=== PATIENT | female | born 1945 | race Caucasian/White ===

== ENCOUNTER → 2016-08-04 | Outpatient (CLI) | payer OTHER, BC | LOC: MMPC 11:11 | PROVIDERS: ATTEND Physician Assistant | DX: R05 Cough (principal); R51 Headache; R11.10 Vomiting, unspecified | CPT/HCPCS: 87400; 99213; G0463 ==

== ENCOUNTER 2016-08-05 08:53 | Emergency (ER) | payer OTHER, BC ==
[2016-08-05] MEDS ORDERED: Sodium Chloride 0.9% 1,000 ML PRIMARY IV ONE (09:05)
[2016-08-05] MEDS ORDERED: ONDANSETRON 4 MG/2 ML VIAL IVP ONE (09:05)
[2016-08-05] MEDS ORDERED: NORMAL SALINE 10 ML SYRINGE FLUSH IVP PRN (09:05)
[2016-08-05 09:13] VITALS: RESP 18; TEMP 97.6
[2016-08-05 09:31] LABS: BASOPHILS # (AUTO) 0.01 10*3/UL; BASOPHILS % (AUTO) 0.2 % (0-1); EOSINOPHILS # (AUTO) 0.01 10*3/UL; EOSINOPHILS % (AUTO) 0.2 % (0-8); HEMATOCRIT 43.9 % (37.0-47.0); HEMOGLOBIN 14.4 g/dL (12.0-16.0); LYMPHOCYTES # (AUTO) 0.74 10*3/uL; MEAN CORPUSCULAR HEMOGLOBIN 30.2 PG (27-31); MEAN CORPUSCULAR HGB CONC 32.8 g/dL (33-37); MEAN PLATELET VOLUME 9.5 FL (7.4-12.2); MONOCYTES # (AUTO) 0.53 10*3/UL (0.3-0.8); MONOCYTES % (AUTO) 12.5 % (5-15); NEUTROPHILS # (AUTO) 2.93 10*3/UL; NEUTROPHILS % (AUTO) 69.4 % (50-80); RED BLOOD COUNT 4.77 10^6/uL (4.20-5.40)
--- NOTE | 2016-08-05 09:36 | PDOC ---
Nausea/Vomiting/Diarrhea HPI - General Chief Complaint: Nausea / Vomiting / Diarrhea Stated Complaint: FEVER, FLU SYMPTOMS Date Seen by Provider: 08/05/16 Time Seen by Provider: 09:05 Source: POSITIVE: Patient Exam Limitations: POSITIVE: No limitations Nurse's Notes Reviewed & Considered: Yes - History of Present Illness Initial Comments: The patient is a 71-year-old female who presents to the emergency department with complaints of nausea, vomiting and diarrhea. She states that yesterday she had onset of upper respiratory symptoms including some congestion and cough. She also had associated fever and chills. She was seen at the outpatient clinic and tested for influenza which was negative. She states that last night and today she has developed nausea and vomiting as well as loose watery diarrhea. She denies any associated abdominal pain. She did try to go to work this morning however ended up vomiting and subsequently decided to come here to the emergency room. She does report some frontal sinus pressure/ headache. She does have cough which is occasionally productive however she denies any shortness of breath. She denies any chest pain or abdominal pain. She is generally healthy. - Patient Home Medications Home Medications: Home Medications [place]-3 Fatty Acids [Fish Oil] 300 mg PO DAILY 05/27/11 Calcium Carbonate/Vitamin D3 [Calcium + Vitamin D Tablet] 1 mg PO DAILY Duloxetine HCl [Cymbalta] 60 mg ORAL QD #90 capsule 07/01/15 Rosuvastatin Calcium [Crestor] 10 mg PO QHS #90 tab 07/01/15 Ibuprofen 800 mg PO QID #120 tab 08/01/16 Azithromycin [Zithromax] 250 mg PO DAILY #6 tab 08/05/16 Ondansetron Odt [Zofran Odt] 8 mg PO Q6H PRN #6 tab.rapdis 08/05/16 Prometh/Codeine 10/6.25mg/5ml [Phenergan/Codeine 10/6.25mg/5ml Liq] 5 ml PO Q6H PRN #60 ml 08/05/16 - Patient Allergies Allergies/Adverse Reactions: Allergies Allergy/AdvReac Type Severity Reaction Status Date / Time nuts Allergy Severe Anaphylaxis Uncoded 08/05/16 08:59 Past Medical History - heen HEENT History: Dentures/Partials Additional HEENT History: UPPER PARTIAL Cardiovascular History: Hyperlipidemia Respiratory History: Denies History Gastrointestinal History: Denies History Additional Gastrointestinal History: SEPTEMBER 2013 Genitourinary History: Denies History Additional Genitourinary History: Recent urinary tract infections. 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 KELLOID SCAR REMOVAL X 2(ABD) Anesthesia Reactions: No Malignant Hyperthermia: No Significant Family History: No pertinent family hx Past Medical History Reviewed: Reviewed - No Changes ROS - Limitations ROS Limitations: No Limitations Constitution: REPORTS: Chills, Fever Cardiovascular: REPORTS: Denies Cardiac Symptoms Respiratory: REPORTS: Cough Non Productive, Cough Productive. DENIES: Hurts To Breathe, Shortness Of Breath Neurological: REPORTS: Headache (frontal LEE/sinus pressure), Dizziness (light- headed) Gastrointestinal: REPORTS: Nausea, Vomitting, Diarrhea. DENIES: Abdominal Pain , Black Stools, Bloody Stools Musculoskeletal: DENIES: Joint Pain, Muscle Aches Genitourinary: REPORTS: Denies Symptoms Eyes: REPORTS: Denies Symptoms ENT: REPORTS: Congestion Skin: DENIES: Rash Nausea/Vomiting/Diarrhea Exam - General Appearance General Appearance: POSITIVE: Alert, Cooperative, No Acute Distress - HEENT HEENT: POSITIVE: Head Inspection Nml, Eyes Inspection Nml, Ears Inspection Nml - Neck Neck: POSITIVE: Supple, Lymphadenopathy - Respiratory Respiratory: POSITIVE: No Respiratory Distress, Breath Sounds Normal - Cardiovascular Cardiovascular: POSITIVE: Regular Rate and Rhythm, Heart Sounds Normal Peripheral Pulses: Dorsalis-pedis (R): 2+, Dorsalis-pedis (L): 2+ - Abdomen Abdomen: Soft: (All Quadrants), Denies Tenderness: (All Quadrants), No Guarding : (All Quadrants), No Rebound: (All Quadrants), No Distention: (All Quadrants) N/V/D Progress - Results Reviewed by me Lab Results Reviewed: Yes Lab Results:: Laboratory Results 08/05/16 08/05/16 Range/Units 09:20 10:29 WBC 4.23 L (4.8-10.8) 10^3/uL RBC 4.77 (4.20-5.40) 10^6/uL Hgb 14.4 (12.0-16.0) g/dL Hct 43.9 (37.0-47.0) % MCV 92.0 (81-99) FL MCH 30.2 (27-31) PG MCHC 32.8 L (33-37) g/dL RDW Std Deviation 47.1 (39-50) fL RDW Coeff of Izabela 14.1 (11.5-14.5) % Plt Count 208 (140-350) 10*3/uL MPV 9.5 (7.4-12.2) FL Immature Gran % (Auto) 0.2 (0-5) % Neut % (Auto) 69.4 (50-80) % Lymph % (Auto) 17.5 (10-50) % [place] % (Auto) 12.5 (5-15) % Eos % (Auto) 0.2 (0-8) % Baso % (Auto) 0.2 (0-1) % Immature Gran # (Auto) 0.01 10*3/UL Neut # (Auto) 2.93 10*3/UL Lymph # (Auto) 0.74 10*3/uL [place] # (Auto) 0.53 (0.3-0.8) 10*3/UL Eos # (Auto) 0.01 10*3/UL Baso # (Auto) 0.01 10*3/UL WBC Morphology Comment Normal morphology (NORM) Plt Morphology Comment Normal morphology (NORM) RBC Morph Comment Normal morphology (NORM) Sodium 140 (135-145) meq/L Potassium 3.6 L (3.8-5.2) meq/L Chloride 105 (98-112) meq/L Carbon Dioxide 23 (23-33) meq/L Anion Gap 12 (5-20) BUN 14 (7-22) mg/dL Creatinine 0.6 (0.50-1.20) mg/dL Estimated GFR > 60 (>60 ml/min/1.73m(2)) BUN/Creatinine Ratio 23.33 H (6-20) Glucose 79 (78-110) mg/dL Calculated Osmolality 289.0 (267-292) mOsm/kg Calcium 8.6 L (8.7-10.7) mg/dL Magnesium 1.8 (1.6-2.4) mg/dL Total Bilirubin 0.3 (0.3-1.2) mg/dL AST 28 (8-39) IU/L ALT 19 (9-52) IU/L Alkaline Phosphatase 91 (38-126) IU/L Total Protein 7.2 (6.1-8.0) g/dL Albumin 4.2 (3.5-4.8) g/dL Globulin 3.0 (2.50-4.10) g/dL Albumin/Globulin Ratio 1.40 (1.3-2.0) mg/g Amylase 91 (30-110) U/L Lipase 188 (23-300) IU/L Ur Collection Type Clean catch urine Urine Color Yellow Urine Clarity Clear (CLEAR) Urine pH 6.0 (5.0-8.5) Ur Specific [place] 1.020 (1.005-1.030) Urine Protein Trace (NEG) mg/dl Urine Glucose (UA) Negative (NEG) mg/dL Urine Ketones 80 (NEG) Urine Occult Blood Moderate H (NEG) Urine Nitrate Negative (NEG) Urine Bilirubin Negative (NEG) Urine Urobilinogen 0.2 (0.2) EU/dL Ur Leukocyte Esterase Negative (NEG) Urine RBC None (NONE) /hpf Urine WBC 0-3 (NONE) Ur Squamous Epith Cells Few (NONE) Ur Renal Epithelial Cell None (NONE) Urine Crystals None Urine Bacteria Rare (NONE) Urine Casts None (NONE) Urine Mucus Few (NONE) Urine Trichomonas None (NONE) Urine Yeast None (NONE) Ur Culture Indicated? Culture not set - Patient's Progress MDM / ED Course: An IV was established and the patient did receive a 1 L bolus of normal saline as well as Zofran 4 mg IV. She was able to tolerate by mouth water without any further vomiting. Laboratory findings were discussed. At this point most of her symptoms are likely explained by viral syndrome. She also may have some component of bronchitis or early pneumonia as she does have significant cough. She was started on Zithromax for treatment of bronchitis. In addition she was prescribed Phenergan with codeine as needed for cough and Zofran as needed for nausea or vomiting. She is advised return to the emergency room if she develops any increased vomiting or dehydration, abdominal pain, increased shortness of breath, any worsening or change in symptoms. She is advised follow -up with primary care in 3-5 days if no improvement. Patient Care Time - Estimated PCT Patient Care Time (In Minutes): 20 Vital Signs - Recent Vital Signs Vital Signs: Vital Signs (Last 8 hours) Temp Pulse Resp BP Pulse Ox 08/05/16 09:01 97.6 F 76 18 135/66 94 - VS Reviewed Vital Signs Reviewed: Yes Discharge Clinical Impression: Bronchitis, Nausea and vomiting, Dehydration Discharge Disposition: Discharged to Home Condition: Fair Prescriptions / Orders: Prometh/Codeine 10/6.25mg/5ml [Phenergan/Codeine 10/6.25mg/5ml Liq] 5 ml PO Q6H PRN #60 ml PRN Reason: Cough Azithromycin [Zithromax] 250 mg PO DAILY #6 tab Ondansetron Odt [Zofran Odt] 8 mg PO Q6H PRN #6 tab.rapdis PRN Reason: Nausea / Vomiting Patient Instructions Given at Discharge: Dehydration (ED), Acute Bronchitis (ED ), Acute Nausea and Vomiting (ED) Additional Instructions: Most of your current symptoms are likely caused by a viral infection. He will also be treated for bronchitis with Zithromax 500 mg today followed by 250 mg daily for 4 days. Recommend rest and push fluids. You have also been prescribed Phenergan with codeine which he can take 1 teaspoon every 6 hours as needed for cough and nausea. You're also given a prescription for some Zofran as needed for nausea or vomiting. Return to the emergency room if increased vomiting or dehydration, increased shortness of breath, any worsening or change in symptoms. Recommend follow-up with primary care if no improvement in 3-5 days. Follow Up With: MAGEN ECHEVARRIA FNP [Primary Care Provider] -
[2016-08-05 09:47] LABS: PLATELET MORPHOLOGY COMMENT NORMAL MORPHOLOGY (NORM); RBC MORPHOLOGY COMMENT NORMAL MORPHOLOGY (NORM); WBC MORPHOLOGY COMMENT NORMAL MORPHOLOGY (NORM)
[2016-08-05 09:48] LABS: BLOOD UREA NITROGEN 14 mg/dL (7-22); BUN/CREATININE RATIO 23.33 (6-20); CALCIUM 8.6 mg/dL (8.7-10.7); EST GLOMERULAR FILTRATION > 60 (>60 ml/min/1.73m(2)); LIPASE 188 IU/L (23-300); MAGNESIUM 1.8 mg/dL (1.6-2.4); SERUM ALBUMIN 4.2 g/dL (3.5-4.8)
[2016-08-05 10:35] LABS: BILIRUBIN,URINE NEGATIVE (NEG); CLARITY,URINE CLEAR (CLEAR); COLOR,URINE YELLOW; GLUCOSE, URINE (UA) NEGATIVE (NEG); NITRATE,URINE NEGATIVE (NEG); OCCULT BLOOD,URINE MODERATE (NEG); PROTEIN,URINE TRACE mg/dl (NEG); UROBILINOGEN,URINE 0.2 EU/dL (0.2)
[2016-08-05 10:41] LABS: URINE SAMPLE TYPE CLEAN CATCH URINE
[2016-08-05 10:42] LABS: BACTERIA,URINE RARE; SQUAMOUS EPITHELIAL CELL,UR FEW; WBC,URINE 0-3
== END 2016-08-05 10:58 | disposition home or self-care (01) ==
LOC: ER 08:53
DX: J20.9 Acute bronchitis, unspecified (principal); E86.0 Dehydration; R19.7 Diarrhea, unspecified; R05 Cough; R51 Headache; R11.2 Nausea with vomiting, unspecified
CPT/HCPCS: 80053; 81001; 81003; 82150; 83690; 83735; 85025; 96361; 96374; 99283; J2405; J7030

== ENCOUNTER 2016-08-08 12:45 | Emergency (ER) | payer OTHER, BC ==
[2016-08-08] MEDS ORDERED: ONDANSETRON 4 MG/2 ML VIAL IVP ONE (13:09)
[2016-08-08] MEDS ORDERED: Sodium Chloride 0.9% 1,000 ML PRIMARY IV ONE (13:09)
[2016-08-08 13:15] VITALS: RESP 20; TEMP 98.2
--- NOTE | 2016-08-08 13:18 | PDOC ---
Gen Adult / Medical Screen HPI - General Chief Complaint: General Medical Stated Complaint: not feeling well Date Seen by Provider: 08/08/16 Time Seen by Provider: 13:13 Source: POSITIVE: Patient, Spouse Exam Limitations: POSITIVE: No limitations Nurse's Notes Reviewed & Considered: Yes - Indicators Temperature Between 95 and 101 Degrees: Yes Respirations Between 12 and 20: Yes Blood Pressure Between 100-165 (sys) and 60-100 (wong): Yes Pulse Range Between 60-105 (100 for age > 60 years): Yes Severe Pain (Greater than 5/10 Reported): No Chest or Abdominal Pain: No Inability to Walk: No Pt Reports Active High Risk Cond. (TB/Hepatitis/HIV/Chemo): No Abnormal Mental Status: No - History of Present Illness Initial Comments: Patient comes in today after a syncopal episode. Patient was initially seen at the medical office building on , incidental swab was negative. She was seen in the emergency department on Monday with nausea vomiting, cough, shortness of breath, and fevers. She was diagnosed with bronchitis, started on azithromycin, Phenergan with codeine, and discharged home. Today she felt well enough to go to work. Once she arrived at work she experienced a syncopal episode. She says prior to this syncopal episode she did have nausea, and diarrhea. Continues to have a cough but it has improved. Patient states she has little appetite, and has taken only minimal fluids. She states she has had no cigarette in 5 days. She has not taken her azithromycin today. Today is her last dose. Body Location Affected: REPORTS: Chest, Abdomen Timing: REPORTS: Constant Duration: <1 week Similar Symptoms Previously: Yes Recent Care Received: REPORTS: Recently Seen, Treated by MD Any Prior Injuries Related to Current Complaint?: No - Patient Home Medications Home Medications: Home Medications [place]-3 Fatty Acids [Fish Oil] 300 mg PO DAILY 05/27/11 Calcium Carbonate/Vitamin D3 [Calcium + Vitamin D Tablet] 1 mg PO DAILY Duloxetine HCl [Cymbalta] 60 mg ORAL QD #90 capsule 07/01/15 Rosuvastatin Calcium [Crestor] 10 mg PO QHS #90 tab 07/01/15 Ibuprofen 800 mg PO QID #120 tab 08/01/16 Azithromycin [Zithromax] 250 mg PO DAILY #6 tab 08/05/16 Ondansetron Odt [Zofran Odt] 8 mg PO Q6H PRN #6 tab.rapdis 08/05/16 Prometh/Codeine 10/6.25mg/5ml [Phenergan/Codeine 10/6.25mg/5ml Liq] 5 ml PO Q6H PRN #60 ml 08/05/16 - Patient Allergies Allergies/Adverse Reactions: Allergies Allergy/AdvReac Type Severity Reaction Status Date / Time nuts Allergy Severe Anaphylaxis Uncoded 08/08/16 12:59 Past Medical History - heen HEENT History: Dentures/Partials Additional HEENT History: UPPER PARTIAL Cardiovascular History: Hyperlipidemia Respiratory History: Denies History Gastrointestinal History: Gallbladder Disease, Other (please comment) Additional Gastrointestinal History: appy Genitourinary History: Denies History Additional Genitourinary History: Recent urinary tract infections. 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 KELLOID SCAR REMOVAL X 2(ABD) Anesthesia Reactions: No Malignant Hyperthermia: No Significant Family History: No pertinent family hx ROS - Limitations ROS Limitations: No Limitations Constitution: REPORTS: Weakness Cardiovascular: REPORTS: Denies Cardiac Symptoms Respiratory: REPORTS: Cough Non Productive, Shortness Of Breath Neurological: REPORTS: Dizziness, Fainting Gastrointestinal: REPORTS: Nausea, Diarrhea Endocrine: REPORTS: Denies Symptoms Musculoskeletal: REPORTS: Denies MS Symptoms Genitourinary: REPORTS: Denies Symptoms Eyes: REPORTS: Denies Symptoms ENT: REPORTS: Denies Symptoms Skin: REPORTS: Denies Skin Symptoms Lympathic: REPORTS: Denies Lympathic Symptoms Immunologic: POSITIVE: Denies Symptoms Psychiatric: POSITIVE: Denies Psych Symptoms Gen Adult/Medical Screen Exam - General Appearance General Appearance: POSITIVE: Alert, Cooperative, No Acute Distress, No Evidence of Trauma - HEENT HEENT: POSITIVE: Head Inspection Nml, Eyes Inspection Nml, Ears Inspection Nml, Nose Inspection Nml, PERRL, EOMI - Pupils Pupil Size: 3 mm: Bilateral - Neck Neck: POSITIVE: Normal Inspection, Thyroid Normal - Respiratory Respiratory: POSITIVE: No Respiratory Distress, Breath Sounds Normal, Chest Non- Tender - Cardiovascular Cardiovascular: POSITIVE: Regular Rate & Rhythm, No Murmur, No Gallop, PMI Normal Peripheral Pulses: Dorsalis-pedis (R): 2+, Dorsalis-pedis (L): 2+ - Abdomen Abdomen: Soft: (All Quadrants), Denies Tenderness: (All Quadrants), Hyperactive Bowel Sounds: (All Quadrants) - Back Back: POSITIVE: Normal Inspection - Neurological / Psychological Mental Status: POSITIVE: Mood Normal, Affect Normal Orientation: POSITIVE: Oriented x 3 Reflexes: Patellar (R): 3+, Patellar (L): 3+, Radial (R): 3+, Radial (L): 3+ - Skin Skin: POSITIVE: Normal Color, Warm, Dry, No Rash - Extremities Extremity: Non-Tender: (All Extremities), Normal ROM: (All Extremities), Normal Inspection: (All Extremities) Gen Adlt/Medical Scrn Progress - Results Reviewed by me Xrays/CTs/US Reviewed by me: Yes Discussed with Radiologist: Yes Lab Results Reviewed: Yes Lab Results:: Laboratory Results 08/08/16 08/08/16 Range/Units 13:37 14:25 WBC 2.96 L (4.8-10.8) 10^3/uL RBC 4.63 (4.20-5.40) 10^6/uL Hgb 14.0 (12.0-16.0) g/dL Hct 41.9 (37.0-47.0) % MCV 90.5 (81-99) FL MCH 30.2 (27-31) PG MCHC 33.4 (33-37) g/dL RDW Std Deviation 44.3 (39-50) fL RDW Coeff of Izabela 13.6 (11.5-14.5) % Plt Count 217 (140-350) 10*3/uL MPV 9.7 (7.4-12.2) FL Sodium 140 (135-145) meq/L Potassium 3.7 L (3.8-5.2) meq/L Chloride 105 (98-112) meq/L Carbon Dioxide 21 L (23-33) meq/L Anion Gap 14 (5-20) BUN 8 (7-22) mg/dL Creatinine 0.4 L (0.50-1.20) mg/dL Estimated GFR > 60 (>60 ml/min/1.73m(2)) BUN/Creatinine Ratio 20.00 (6-20) Glucose 82 (78-110) mg/dL Calculated Osmolality 286.0 (267-292) mOsm/kg Calcium 8.6 L (8.7-10.7) mg/dL Magnesium 2.0 (1.6-2.4) mg/dL Total Bilirubin 0.4 (0.3-1.2) mg/dL AST 25 (8-39) IU/L ALT 19 (9-52) IU/L Alkaline Phosphatase 83 (38-126) IU/L Total Protein 7.2 (6.1-8.0) g/dL Albumin 4.0 (3.5-4.8) g/dL Globulin 3.2 (2.50-4.10) g/dL Albumin/Globulin Ratio 1.20 L (1.3-2.0) mg/g Ur Collection Type Cath specimen Urine Color Yellow Urine Clarity Clear (CLEAR) Urine pH 7.5 (5.0-8.5) Ur Specific [place] 1.015 (1.005-1.030) Urine Protein Negative (NEG) mg/dl Urine Glucose (UA) Negative (NEG) mg/dL Urine Ketones Negative (NEG) Urine Occult Blood Trace H (NEG) Urine Nitrate Negative (NEG) Urine Bilirubin Negative (NEG) Urine Urobilinogen 0.2 (0.2) EU/dL Ur Leukocyte Esterase Negative (NEG) Urine RBC 1-3 (NONE) /hpf Urine WBC 0 (NONE) Ur Squamous Epith Cells Rare (NONE) Ur Renal Epithelial Cell None (NONE) Urine Crystals None Urine Bacteria Rare (NONE) Urine Casts None (NONE) Urine Mucus None (NONE) Urine Trichomonas None (NONE) Urine Yeast None (NONE) Ur Culture Indicated? Culture not set EKG Interpretation:: POSITIVE: Normal Sinus Rhythm, Normal Rate, Normal QRS, Normal ST/T - Patient's Progress Pain Medication Addressed: POSITIVE: Not Applicable Re-Examine Time: 14:58 Status: POSITIVE: Improved MDM / ED Course: Patient examined, an IV started, blood drawn and sent to the lab for studies, chest x-ray and EKG were obtained. ER course: Patient received a liter of normal saline, and Zofran. After hydration her symptoms had significantly improved and had no further episodes of diarrhea or dizziness. Findings: CBC shows a suppressed white count at 2.9. Comprehensive metabolic panel shows potassium of 3.7 the remainder the panel was unremarkable. Urinalysis showed no urinary tract infection present. Magnesium is normal. Assessment: Viral diarrhea, nausea and vomiting. Syncope, most likely related to dehydration. Plan: Discharge home, hydration, return if return of symptoms. - Consult Counseled: POSITIVE: Patient, Family, RE: Lab Results, RE: Radiology Results, RE : DX Patient Care Time - Estimated PCT Patient Care Time (In Minutes): 20 Vital Signs - Recent Vital Signs Vital Signs: Vital Signs (Last 8 hours) Temp Pulse Resp BP Pulse Ox 08/08/16 13:05 98.2 F 70 20 149/102 93 - VS Reviewed Vital Signs Reviewed: Yes Discharge Clinical Impression: Viral disease, Nausea and vomiting, Dehydration Discharge Disposition: Discharged to Home Condition: Stable Patient Instructions Given at Discharge: Dehydration (ED), Syncope (ED)
[2016-08-08 13:39] LABS: HEMATOCRIT 41.9 % (37.0-47.0); MEAN CORPUSCULAR HEMOGLOBIN 30.2 PG (27-31); MEAN CORPUSCULAR HGB CONC 33.4 g/dL (33-37); MEAN PLATELET VOLUME 9.7 FL (7.4-12.2); RED BLOOD COUNT 4.63 10^6/uL (4.20-5.40)
--- NOTE | 2016-08-08 13:44 | EKG ---
[address] [address] Measurements Intervals [place] Rate: 66 P: 61 SD: 163 QRS: 63 QRSD: 85 T: 59 QT: 447 QTc: 460 Interpretive Statements SINUS RHYTHM No previous ECG available for comparison Electronically Signed On 08-08-16 18:11:47 MDT by Jus Todd [email or web address]
[2016-08-08 13:50] LABS: BLOOD UREA NITROGEN 8 mg/dL (7-22); CALCIUM 8.6 mg/dL (8.7-10.7); EST GLOMERULAR FILTRATION > 60 (>60 ml/min/1.73m(2))
--- NOTE | 2016-08-08 13:58 | DI ---
XR CXR 2VW PA/LAT,08/08/2016 1:09 PM: Clinical History: Cough Previous Exam: October 26, 2015 Findings: PA and lateral views of the chest are obtained, and demonstrate clear lungs. The cardiomediastinum an d bony thorax are unremarkable. The cardiomediastinum is unremarkable. Impression: No acute disease.
[2016-08-08 14:29] LABS: BILIRUBIN,URINE NEGATIVE (NEG); CLARITY,URINE CLEAR (CLEAR); COLOR,URINE YELLOW; GLUCOSE, URINE (UA) NEGATIVE (NEG); NITRATE,URINE NEGATIVE (NEG); PH,URINE 7.5 (5.0-8.5); PROTEIN,URINE NEGATIVE (NEG); UROBILINOGEN,URINE 0.2 EU/dL (0.2)
[2016-08-08 14:40] LABS: OCCULT BLOOD,URINE TRACE (NEG); URINE SAMPLE TYPE CATH SPECIMEN
[2016-08-08 14:41] LABS: BACTERIA,URINE RARE; SQUAMOUS EPITHELIAL CELL,UR RARE; WBC,URINE 0
== END 2016-08-08 15:21 | disposition home or self-care (01) ==
LOC: ER 12:45
DX: B34.9 Viral infection, unspecified (principal); R11.2 Nausea with vomiting, unspecified; E86.0 Dehydration; R55 Syncope and collapse
CPT/HCPCS: 36415; 71020; 80053; 81001; 81003; 83735; 85027; 93005; 93010; 96361; 96374; 99284; J2405; J7030

== ENCOUNTER → 2016-11-15 | Outpatient (CLI) | payer OTHER, BC ==
[2016-11-15 07:53] LABS: BASOPHILS # (AUTO) 0.09 10*3/UL; BASOPHILS % (AUTO) 1.8 % (0-1); HEMATOCRIT 45.8 % (37.0-47.0); HEMOGLOBIN 15.3 g/dL (12.0-16.0); LYMPHOCYTES # (AUTO) 2.49 10*3/uL; MEAN CORPUSCULAR HEMOGLOBIN 30.5 PG (27-31); MEAN CORPUSCULAR HGB CONC 33.4 g/dL (33-37); MEAN CORPUSCULAR VOLUME 91.4 FL (81-99); MEAN PLATELET VOLUME 9.6 FL (7.4-12.2); MONOCYTES # (AUTO) 0.33 10*3/UL (0.3-0.8); MONOCYTES % (AUTO) 6.5 % (5-15); NEUTROPHILS # (AUTO) 2.09 10*3/UL; NEUTROPHILS % (AUTO) 40.8 % (50-80); RED BLOOD COUNT 5.01 10^6/uL (4.20-5.40)
[2016-11-15 07:58] LABS: PLATELET MORPHOLOGY COMMENT NORMAL MORPHOLOGY (NORM); RBC MORPHOLOGY COMMENT NORMAL MORPHOLOGY (NORM); WBC MORPHOLOGY COMMENT NORMAL MORPHOLOGY (NORM)
[2016-11-15 08:12] LABS: BLOOD UREA NITROGEN 13 mg/dL (7-22); BUN/CREATININE RATIO 21.66 (6-20); CALCIUM 8.9 mg/dL (8.7-10.7); CHOL/HDL RATIO 3.08 RATIO (0-4.0); EST GLOMERULAR FILTRATION > 60 (>60 ml/min/1.73m(2)); HDL CHOLESTEROL 46 mg/dL (40-150); SERUM ALBUMIN 4.4 g/dL (3.5-4.8); SERUM CHOLESTEROL 142 mg/dL (120-200)
== END ==
LOC: LAB 07:28
PROVIDERS: ATTEND Nurse Practitioner Family
DX: E78.5 Hyperlipidemia, unspecified (principal); E03.9 Hypothyroidism, unspecified; R63.4 Abnormal weight loss; G45.4 Transient global amnesia; F32.0 Major depressive disorder, single episode, mild
CPT/HCPCS: 36415; 80053; 80061; 84443; 85025; G0439; G0463

== ENCOUNTER → 2016-11-30 | Outpatient (CLI) | payer OTHER, BC | LOC: MMPC 09:00 | PROVIDERS: ATTEND Nurse Practitioner Family | DX: F41.1 Generalized anxiety disorder (principal) | CPT/HCPCS: 99213; G0463 ==